=== PATIENT | female | born 1965 | race Caucasian/White ===

== ENCOUNTER 2022-03-29 | Emergency (ER) | payer MEDICAID ==
[2022-03-29 00:14] VITALS: BP 149/75; PULSE 64
[2022-03-29] MEDS ORDERED: guaiFENesin 600 MG Tab.ER PO ONE (00:49)
[2022-03-29 00:55] LABS: CORONAVIRUS COVID-19 NAA NEGATIVE (NEGATIVE)
== END 2022-03-29 01:10 | disposition home or self-care (01) ==
LOC: JP.ED
DX: J45.901 Unspecified asthma with (acute) exacerbation (principal); M35.00 Sjogren syndrome, unspecified; M32.9 Systemic lupus erythematosus, unspecified; E03.9 Hypothyroidism, unspecified; Z88.6 Allergy status to analgesic agent; Z88.5 Allergy status to narcotic agent; Z88.0 Allergy status to penicillin; Z88.8 Allergy status to other drugs, medicaments and biological substances; Z79.899 Other long term (current) drug therapy; Z90.710 Acquired absence of both cervix and uterus; Z86.16 Personal history of COVID-19; Z20.822 Contact with and (suspected) exposure to COVID-19
CPT/HCPCS: 0241U; 71046; 71046-26; 99283; 99285; A9270-GY

== ENCOUNTER 2022-04-16 06:03 | Day surgery (SDC) | payer MEDICAID ==
[2022-04-16] MEDS ORDERED: Lactated Ringers 1,000 ML IV SCH (06:30)
[2022-04-16] MEDS ORDERED: fentaNYL 100 MCG/2 ML SDV ONE (07:21)
[2022-04-16] MEDS ORDERED: Propofol 200 MG/20 ML SDV ONE (07:21)
[2022-04-16 09:59] VITALS: BP 109/59; PULSE 63
== END 2022-04-16 10:25 | disposition home or self-care (01) ==
LOC: JP.SDS 06:03
PROVIDERS: ATTEND Student in an Organized Health Care Education/Training Program
DX: K21.9 Gastro-esophageal reflux disease without esophagitis (principal); K29.50 Unspecified chronic gastritis without bleeding; J45.909 Unspecified asthma, uncomplicated; F41.9 Anxiety disorder, unspecified; Z79.899 Other long term (current) drug therapy; Z88.0 Allergy status to penicillin; Z88.5 Allergy status to narcotic agent; Z88.6 Allergy status to analgesic agent; Z88.8 Allergy status to other drugs, medicaments and biological substances
CPT/HCPCS: 43239; 88305; 88342; J2704; J3010

== ENCOUNTER 2024-08-05 18:26 | Emergency (ER) | payer MEDICAID ==
[2024-08-05 18:43] VITALS: BP 154/59; PULSE 63
== END 2024-08-05 20:25 | disposition home or self-care (01) ==
LOC: JP.ED 18:26
DX: K04.7 Periapical abscess without sinus (principal); Z91.018 Allergy to other foods; Z88.8 Allergy status to other drugs, medicaments and biological substances; Z88.5 Allergy status to narcotic agent; Z88.0 Allergy status to penicillin; Z79.899 Other long term (current) drug therapy; Z79.890 Hormone replacement therapy; Z86.16 Personal history of COVID-19
CPT/HCPCS: 99283